=== PATIENT | male | born 1945 | race Caucasian/White ===

== ENCOUNTER 2024-10-08 15:28 | Emergency (ER) | payer MEDICARE, OTHER ==
[~2024-10-08] VITALS: Ht 172.7 cm; Wt 113.4 kg
[2024-10-08] MEDS ORDERED: PANT40TA2 PO (15:38)
[2024-10-08] MEDS ORDERED: ISOS30TA9 PO (15:38)
[2024-10-08] MEDS ORDERED: ATOR20TA PO (15:38)
[2024-10-08] MEDS ORDERED: QUET50TA PO (15:38)
[2024-10-08] MEDS ORDERED: LISI40TA13 PO (15:38)
[2024-10-08] MEDS ORDERED: LORA-259 PO (15:38)
[2024-10-08] MEDS ORDERED: CARV12.5 PO (15:38)
[2024-10-08] MEDS ORDERED: CLOP75TA15 PO (15:38)
[2024-10-08] MEDS ORDERED: TAMS-3 PO (15:38)
[2024-10-08] MEDS ORDERED: AMLO5TAB4 PO (15:38)
[2024-10-08] MEDS ORDERED: DOXA2TAB PO (15:38)
[2024-10-08] MEDS ORDERED: TIZA2CAP PO (15:38)
[2024-10-08] MEDS ORDERED: ONDANSETRON 4 MG/2 ML VIAL ONE (16:13)
[2024-10-08] MEDS ORDERED: HYDROMORPHONE 1 MG/1 ML DISP.SYRIN ONE (16:13)
[2024-10-08 16:17] LABS: BASOPHILS % (AUTO) 0.9 % (0.0-2.0); DIFFERENTIAL COMMENT 0; EOSINOPHILS # (AUTO) 0.1 K/uL (0.0-0.7); EOSINOPHILS % (AUTO) 2.1 % (0.0-7.0); HEMATOCRIT 35.6 % (36.7-47.1); HEMOGLOBIN 12.1 g/dL (12.5-16.3); LYMPHOCYTES # (AUTO) 0.8 K/uL (0.8-4.8); LYMPHOCYTES % (AUTO) 14.3 % (20.5-51.5); MEAN CORPUSCULAR HEMOGLOBIN 29.1 uug (23.8-33.4); MEAN CORPUSCULAR HGB CONC 34 g/dL (32.5-36.3); MEAN CORPUSCULAR VOLUME 85.8 fL (73.0-96.2); MONOCYTES # (AUTO) 0.5 K/uL (0.1-1.30); MONOCYTES % (AUTO) 8.9 % (0.0-11.0); NEUTROPHILS # (AUTO) 4.1 K/uL (1.8-8.9); NEUTROPHILS % (AUTO) 73.8 % (38.5-71.5); PLATELET COUNT (AUTO) 203 K/uL (152-348); RED BLOOD CELL COUNT(AUTO) 4.15 MIL/uL (4.06-5.63); RED CELL DISTRIBUTION WIDTH 16.3 % (12.1-16.2); WHITE BLOOD COUNT (AUTO) 5.6 K/uL (3.6-10.2)
[2024-10-08] MEDS: ONDANSETRON 4 MG/2 ML VIAL IV ONE (16:18)
[2024-10-08] MEDS: HYDROMORPHONE 1 MG/1 ML DISP.SYRIN IV ONE (16:18)
[2024-10-08 16:35] LABS: CALCIUM 8.6 mg/dL (8.5-10.1); CARBON DIOXIDE 24 mmol/L (21-32); CHLORIDE 107 mmol/L (98-107); CREATINE KINASE, TOTAL 86 U/L (39-308); CREATININE 1.2 mg/dL (0.6-1.3); GLUCOSE 136 mg/dL (74-106); MAGNESIUM 1.6 mg/dL (1.8-2.4); POTASSIUM 3.5 mmol/L (3.5-5.1); SODIUM SERUM 142 mmol/L (136-145); UREA NITROGEN, BLOOD 15 mg/dL (7-18)
[2024-10-08] MEDS ORDERED: MAGNESIUM SULFATE/D5W 200 ML ONE (17:29)
[2024-10-08] MEDS: MAGNESIUM SULFATE/D5W 100 ML IV SCH (17:36)
[2024-10-08] MEDS ORDERED: HYDR-3980 PO (18:43)
[2024-10-08] MEDS ORDERED: TDAP DIPH,PERTUSS,TET VAC/PF 0.5 ML DISP.SYRIN IM ONE ×2 (18:49→18:56)
[2024-10-08] MEDS: TDAP DIPH,PERTUSS,TET VAC/PF 0.5 ML DISP.SYRIN IM ONE (19:00)
[2024-10-08 21:25] VITALS: BP 137/80; TEMP 98; O2SAT 98
== END 2024-10-08 21:26 | disposition home or self-care (01) ==
LOC: ER 15:28
DX: S80.12XA Contusion of left lower leg, initial encounter (principal); R51.9 Headache, unspecified; R60.0 Localized edema; E11.9 Type 2 diabetes mellitus without complications; E83.42 Hypomagnesemia; I69.354 Hemiplegia and hemiparesis following cerebral infarction affecting left non-dominant side; K21.9 Gastro-esophageal reflux disease without esophagitis; Z79.02 Long term (current) use of antithrombotics/antiplatelets; Z79.899 Other long term (current) drug therapy; Z88.0 Allergy status to penicillin; Z88.1 Allergy status to other antibiotic agents; Z88.5 Allergy status to narcotic agent; Z88.8 Allergy status to other drugs, medicaments and biological substances; Z95.0 Presence of cardiac pacemaker; W18.39XA Other fall on same level, initial encounter; Y93.89 Activity, other specified; Y92.89 Other specified places as the place of occurrence of the external cause; Y99.8 Other external cause status
CPT/HCPCS: 99284; 96365; 96375; 80048; 82550; 83735; 85025; 36415; 73590; 73620; 90715; 90471; J3475; J2405; J1171; A4606; A4663

== ENCOUNTER 2024-12-03 19:19 | Inpatient (IN) | payer MEDICARE, OTHER ==
[~2024-12-03] VITALS: Ht 170.2 cm; Wt 68.0 kg
[~2024-12-03 19:19] MED LIST: AMLO5TAB4 PO; ATOR20TA PO; CARV12.5 PO; CLOP75TA15 PO; DOXA2TAB PO; HYDR-3980 PO; ISOS30TA9 PO; LISI40TA13 PO; LORA-259 PO; PANT40TA2 PO; QUET50TA PO; TAMS-3 PO; TIZA2CAP PO
[2024-12-03 19:59] LABS: BASOPHILS # (AUTO) 0.1 K/UL (0.0-0.2); BASOPHILS % (AUTO) 1.2 % (0.0-2.0); EOSINOPHILS # (AUTO) 0.1 K/uL (0.0-0.7); EOSINOPHILS % (AUTO) 1.2 % (0.0-7.0); HEMATOCRIT 41.1 % (36.7-47.1); HEMOGLOBIN 13.7 g/dL (12.5-16.3); LYMPHOCYTES # (AUTO) 0.8 K/uL (0.8-4.8); LYMPHOCYTES % (AUTO) 12.9 % (20.5-51.5); MEAN CORPUSCULAR HEMOGLOBIN 29.6 uug (23.8-33.4); MEAN CORPUSCULAR HGB CONC 33 g/dL (32.5-36.3); MEAN CORPUSCULAR VOLUME 88.9 fL (73.0-96.2); MONOCYTES # (AUTO) 0.5 K/uL (0.1-1.30); MONOCYTES % (AUTO) 8.9 % (0.0-11.0); NEUTROPHILS # (AUTO) 4.5 K/uL (1.8-8.9); NEUTROPHILS % (AUTO) 75.8 % (38.5-71.5); PLATELET COUNT (AUTO) 190 K/uL (152-348); RED BLOOD CELL COUNT(AUTO) 4.62 MIL/uL (4.06-5.63); RED CELL DISTRIBUTION WIDTH 16.1 % (12.1-16.2)
[2024-12-03 20:02] LABS: DIFFERENTIAL COMMENT 1
[2024-12-03 20:07] LABS: CARBON DIOXIDE 25 mmol/L (21-32); CHLORIDE 107 mmol/L (98-107); CREATININE 1.2 mg/dL (0.6-1.3); GLUCOSE 114 mg/dL (74-106); POTASSIUM 4.5 mmol/L (3.5-5.1); SODIUM SERUM 143 mmol/L (136-145); UREA NITROGEN, BLOOD 17 mg/dL (7-18)
[2024-12-03 20:12] LABS: ETHANOL < 3 MG/DL (0-10)
[2024-12-03 20:13] LABS: ALANINE AMINOTRANSFERASE 25 U/L (16-63); ALBUMIN 3.1 g/dL (3.4-5.0); ALKALINE PHOSPHATASE 85 U/L (50-136); ASPARTATE AMINOTRANSFERASE 19 U/L (15-37); BILIRUBIN,DIRECT 0.4 mg/dL (0.0-0.2); BILIRUBIN,TOTAL 1.3 mg/dL (0.2-1.0); TOTAL PROTEIN, SERUM 6.8 g/dL (6.4-8.2)
[2024-12-03] MEDS ORDERED: NA P133E RC (20:18)
[2024-12-03] MEDS ORDERED: BRIN10DR EACHEYE (20:18)
[2024-12-03] MEDS ORDERED: LATA7.5D EACHEYE (20:18)
[2024-12-03] MEDS ORDERED: MAGN400O6 PO (20:18)
[2024-12-03] MEDS ORDERED: ACET-73 PO (20:18)
[2024-12-03] MEDS ORDERED: TIMO5DRO35 EACHEYE (20:18)
[2024-12-03] MEDS ORDERED: IPRA3AMP22 IH (20:18)
[2024-12-03] MEDS ORDERED: MAG355OR18 PO (20:18)
[2024-12-03] MEDS ORDERED: BACL10TA PO (20:18)
[2024-12-03] MEDS ORDERED: PRED5DRO16 LEFTEYE (20:18)
[2024-12-03] MEDS ORDERED: ACET325T53 PO (20:18)
[2024-12-03] MEDS ORDERED: POLY119P2 PO (20:18)
[2024-12-03] MEDS ORDERED: MULT-213 PO (20:18)
[2024-12-03] MEDS ORDERED: QUET25TA PO (20:18)
[2024-12-03] MEDS ORDERED: TAMS-3 PO (20:18)
[2024-12-03] MEDS ORDERED: TRAM50TA2 PO (20:18)
[2024-12-03] MEDS ORDERED: AMMO385C4 TP (20:18)
[2024-12-03] MEDS ORDERED: BISA10SU61 RC (20:18)
[2024-12-03] MEDS ORDERED: ISOS10TA8 PO (20:18)
[2024-12-03] MEDS ORDERED: HALOPERIDOL LACTATE 5 MG/1 ML VIAL ONE (22:34)
[2024-12-03] MEDS: HALOPERIDOL LACTATE 5 MG/1 ML VIAL IM ONE (22:37)
[2024-12-03] MEDS ORDERED: LORAZEPAM 2 MG/1 ML VIAL ONE (23:05)
[2024-12-03] MEDS: LORAZEPAM 2 MG/1 ML VIAL IM ONE (23:10)
[2024-12-03 23:41] LABS: *BILIRUBIN,URIN NEGATIVE (NEGATIVE); *CLARITY,URINE CLEAR (CLEAR); *COLOR,URINE YELLOW (YELLOW); *KETONES,URINE 1+ (NEGATIVE); *PROTEIN,URINE 1+ (NEGATIVE); LEUKOCYTE ESTERASE ,URINE TRACE (NEGATIVE); NITRITE, URINE NEGATIVE (NEGATIVE); UGLUCOSE NEGATIVE (NEGATIVE)
[2024-12-03 23:43] LABS: *BLOOD, URINE TRACE (NEGATIVE)
[2024-12-03 23:51] LABS: *AMPHETAMINE, URINE NEGATIVE (NEGATIVE); *BARBITURATE, URINE NEGATIVE (NEGATIVE); *BENZODIAZEPINE, URINE NEGATIVE (NEGATIVE); *CANNABINOID, URINE NEGATIVE (NEGATIVE); *COCCAINE, URINE NEGATIVE (NEGATIVE); *OPIATE, URINE NEGATIVE (NEGATIVE); *PHENCYCLIDINE SCREEN,URINE NEGATIVE (NEGATIVE); FENTANYL, URINE NEGATIVE (NEGATIVE)
[2024-12-03 23:56] LABS: BACTERIA,URINE NONE SEEN /HPF (NONE SEEN); MUCUS,URINE FEW /LPF (0-FEW); RBC,URINE 0-3 /HPF (0-3); SQUAMOUS EPITHELIAL CELL,UR NONE SEEN /HPF (NONE SEEN); WBC,URINE 0-3 /HPF (0-3)
[2024-12-04] MEDS ORDERED: MAGNESIUM HYDROXIDE 30 ML LIQUID UDC PO PRN ×2 (04:15→11:00)
[2024-12-04] MEDS ORDERED: MAG HYDROX/AL HYDROX/SIMETH 30 ML LIQUID UDC PO PRN ×2 (04:15→11:00)
[2024-12-04 04:50] VITALS: BP 115/56; TEMP 98; O2SAT 96
[2024-12-04] MEDS ORDERED: POVI37802 TP (06:05)
[2024-12-04] MEDS: LORAZEPAM 1 MG TABLET PO PRN ×2 (07:05→10:49)
[2024-12-04 08:10] VITALS: BP 131/69; TEMP 98.1; O2SAT 94
[2024-12-04] MEDS: DIVALPROEX 250 MG TABLET.DR PO SCH (10:05)
[2024-12-04] MEDS: OLANZAPINE 2.5 MG TABLET PO SCH (10:05)
[2024-12-04] MEDS ORDERED: BISACODYL 10 MG SUPP.RECT RC PRN (11:00)
[2024-12-04] MEDS ORDERED: ACETAMINOPHEN ES 500 MG TABLET- SA PATIENTS-PAIN ONLY PO PRN (11:00)
[2024-12-04] MEDS ORDERED: POLYETHYLENE GLYCOL 3350 238 GM POWDER PO PRN (11:00)
[2024-12-04] MEDS ORDERED: FLEET ENEMA 133 ML BOTTLE RC PRN (11:00)
[2024-12-04] MEDS: prednisoLONE ACET 1% OPHT DROP 5 ML BOTTLE LEFTEYE SCH (14:12)
[2024-12-04 16:12] VITALS: BP 133/71; TEMP 98.3; O2SAT 99
[2024-12-04] MEDS ORDERED: BRINZOLAMIDE 1% OPHT DROP 10 ML BOTTLE EACHEYE SCH (17:00)
[2024-12-04] MEDS ORDERED: ISOSORBIDE MONONITRATE 10 MG TABLET PO SCH (17:00)
[2024-12-04] MEDS: CARVEDILOL 12.5 MG TABLET PO SCH (17:38)
[2024-12-04] MEDS: ISOSORBIDE MONONITRATE 30 MG TAB.SR.24H PO SCH (17:39)
[2024-12-04] MEDS: DORZOLAMIDE 2% OPHT DROP 10 ML BOTTLE EACHEYE SCH (17:40)
[2024-12-04 20:00] VITALS: BP 134/65; TEMP 97.4; O2SAT 99
[2024-12-04] MEDS ORDERED: TIZANIDINE HCL 2 MG PO SCH (21:00)
[2024-12-04] MEDS: TIZANIDINE HCL 4 MG TABLET PO SCH (21:51)
[2024-12-04] MEDS: REMEDY ESSENTIAL ZINC PASTE 113 GM TOP SCH (21:51)
[2024-12-04] MEDS: ATORVASTATIN 20 MG TABLET PO SCH (21:52)
[2024-12-04] MEDS: AMLODIPINE 5 MG TABLET PO SCH (21:52)
[2024-12-04] MEDS: TAMSULOSIN HCL 0.4 MG CAP.SR.24H PO SCH (21:52)
[2024-12-05] MEDS: BACLOFEN 10 MG TABLET PO PRN (00:17)
[2024-12-05] MEDS: ZOLPIDEM 5 MG TABLET PO PRN (01:08)
[2024-12-05] MEDS: PANTOPRAZOLE SODIUM 40 MG TABLET.DR PO SCH (06:34)
[2024-12-05 08:25] VITALS: BP 93/53; TEMP 98.2; O2SAT 96
[2024-12-05] MEDS ORDERED: ACETAMINOPHEN 325 MG TABLET-SA PATIENTS-PAIN ONLY PO SCH (09:00)
[2024-12-05] MEDS ORDERED: Medication Not On Formulary EA (Lisinopril 40 MG) PO SCH (09:00)
[2024-12-05] MEDS ORDERED: Medication Not On Formulary EA (Multivitamins W-Minerals (Multivitamin With Minerals) 1 PO SCH (09:00)
[2024-12-05] MEDS: LISINOPRIL 20 MG TABLET PO SCH (09:00)
[2024-12-05] MEDS: CLOPIDOGREL 75 MG TABLET PO SCH (09:02)
[2024-12-05] MEDS: MULTIVIT, IRON, MIN NO. 8, FA TABLET PO SCH (09:02)
[2024-12-05] MEDS: AMMONIUM LACTATE 12% LOTION 225 GM BOTTLE TP SCH (16:57)
[2024-12-05] MEDS ORDERED: MIRALAX 17 GM POWD.PACK PO PRN (17:15)
[2024-12-05 20:40] VITALS: BP 150/67; TEMP 97.8; O2SAT 99
[2024-12-06] MEDS: ACETAMINOPHEN 325 MG TABLET PO PRN (05:26)
[2024-12-06 08:29] VITALS: BP 110/52; TEMP 97.8; O2SAT 98
[2024-12-06 15:42] VITALS: BP 128/62; TEMP 97.4; O2SAT 97
[2024-12-06 20:39] VITALS: BP 143/72; TEMP 97.3; O2SAT 98
[2024-12-07 08:24] VITALS: BP 138/100; TEMP 97.7; O2SAT 99
[2024-12-07 16:18] VITALS: BP 128/71; TEMP 98.4; O2SAT 100
[2024-12-07 20:00] VITALS: BP 156/80; TEMP 98; O2SAT 97
[2024-12-08 08:08] VITALS: BP 149/69; TEMP 98; O2SAT 98
[2024-12-08] MEDS: GLUCERNA SHAKE 237 ML CAN PO SCH (08:57)
[2024-12-08] MEDS: OLANZAPINE 2.5 MG TABLET PO SCH (12:58)
[2024-12-08 15:21] VITALS: BP 154/77; TEMP 98; O2SAT 96
[2024-12-08 20:00] VITALS: BP 120/51; TEMP 97.7; O2SAT 97
[2024-12-09 08:00] VITALS: BP 126/54; TEMP 97.6; O2SAT 96
[2024-12-09 12:00] VITALS: BP 139/67; TEMP 98.2; O2SAT 97
[2024-12-09 15:50] VITALS: BP 122/67; TEMP 98.2; O2SAT 98
[2024-12-09 19:40] VITALS: BP 150/68; TEMP 98.3; O2SAT 95
[2024-12-09] MEDS: GUAIFENESIN/DEXTROMETHORPHAN 5 ML UDC PO PRN (21:11)
[2024-12-10] MEDS: ACETAMINOPHEN 325 MG TABLET PO PRN (01:46)
[2024-12-10 08:00] VITALS: BP 120/54; TEMP 97.5; O2SAT 95
[2024-12-10] MEDS ORDERED: LORAZEPAM 1 MG TABLET PO PRN (08:15)
[2024-12-10] MEDS: OLANZAPINE 2.5 MG TABLET PO SCH (09:42)
[2024-12-10] MEDS: GUAIFENESIN/DEXTROMETHORPHAN 5 ML UDC PO PRN (09:59)
[2024-12-10 15:01] VITALS: BP 120/58; TEMP 98.4; O2SAT 93
[2024-12-10 20:00] VITALS: BP 120/63; TEMP 98.8; O2SAT 92
[2024-12-10] MEDS: TRAMADOL HCL 50 MG TABLET PO PRN (20:32)
[2024-12-10] MEDS: OLANZAPINE 5 MG TABLET PO SCH (21:42)
[2024-12-10] MEDS: AZITHROMYCIN 250 MG TABLET PO SCH (23:05)
[2024-12-11] VITALS (7 sets, daily range): BP systolic 96–115; BP diastolic 54–64; TEMP 97.6–100; O2SAT 94–96
[2024-12-11] MEDS ORDERED: FUROSEMIDE 20 MG/2 ML VIAL IV ONE (09:00)
[2024-12-11] MEDS: DOXYCYCLINE HYCLATE 100 MG TABLET PO SCH (10:17)
[2024-12-11] MEDS: FUROSEMIDE 40 MG TABLET PO ONE (10:51)
[2024-12-11] MEDS: ALBUTEROL SULFATE 1.25 MG/3 ML NEBU NEB PRN (21:47)
[2024-12-11] MEDS ORDERED: AZITHROMYCIN 250 MG TABLET PO SCH (23:00)
[2024-12-12 04:49] VITALS: BP 121/57; TEMP 99.4; O2SAT 96
[2024-12-12 07:54] LABS: BASOPHILS % (AUTO) 0.4 % (0.0-2.0); EOSINOPHILS % (AUTO) 0.3 % (0.0-7.0); HEMATOCRIT 36.2 % (36.7-47.1); HEMOGLOBIN 12.2 g/dL (12.5-16.3); LYMPHOCYTES # (AUTO) 0.8 K/uL (0.8-4.8); LYMPHOCYTES % (AUTO) 12.4 % (20.5-51.5); MEAN CORPUSCULAR HEMOGLOBIN 29.7 uug (23.8-33.4); MEAN CORPUSCULAR HGB CONC 34 g/dL (32.5-36.3); MONOCYTES % (AUTO) 15.3 % (0.0-11.0); NEUTROPHILS # (AUTO) 4.8 K/uL (1.8-8.9); NEUTROPHILS % (AUTO) 71.6 % (38.5-71.5); PLATELET COUNT (AUTO) 175 K/uL (152-348); RED BLOOD CELL COUNT(AUTO) 4.12 MIL/uL (4.06-5.63); RED CELL DISTRIBUTION WIDTH 16.4 % (12.1-16.2); WHITE BLOOD COUNT (AUTO) 6.7 K/uL (3.6-10.2)
[2024-12-12 08:07] LABS: DIFFERENTIAL COMMENT 1
[2024-12-12 08:08] LABS: CALCIUM 8.5 mg/dL (8.5-10.1); CARBON DIOXIDE 26 mmol/L (21-32); CHLORIDE 102 mmol/L (98-107); CREATININE 1.7 mg/dL (0.6-1.3); GLUCOSE 90 mg/dL (74-106); POTASSIUM 3.7 mmol/L (3.5-5.1); SODIUM SERUM 140 mmol/L (136-145); UREA NITROGEN, BLOOD 50 mg/dL (7-18)
[2024-12-12 08:35] VITALS: BP 118/76; TEMP 98.1; O2SAT 93
[2024-12-12 09:44] LABS: ANISOCYTOSIS 1+; EOSINOPHILS % (MANUAL) 1 % (0-8); LYMPHOCYTES % (MANUAL) 12 % (20-40); MONOCYTES % (MANUAL) 15 % (2-10); NEUTROPHILS % (MANUAL) 72 % (42-75); PLATELET ESTIMATE ADEQUATE
[2024-12-12] MEDS: LORAZEPAM 0.5 MG TABLET PO PRN (10:12)
[2024-12-12 11:18] VITALS: BP 114/69; TEMP 98.4; O2SAT 96
[2024-12-12 18:13] VITALS: BP 107/53; TEMP 98.9; O2SAT 94
[2024-12-12 20:30] VITALS: BP 102/57; TEMP 98.5; O2SAT 95
[2024-12-13 06:00] VITALS: BP 114/58; TEMP 98.5; O2SAT 95
[2024-12-13 09:16] VITALS: BP 138/54; TEMP 99; O2SAT 96
[2024-12-13] MEDS: IV NS 1000 ML 1,000 ML IV SCH (11:18)
[2024-12-13 18:02] VITALS: BP 114/41; TEMP 98.6; O2SAT 92
[2024-12-13 19:05] VITALS: BP 117/53; TEMP 99.8; O2SAT 94
[2024-12-13 20:01] VITALS: O2SAT 94
[2024-12-13 20:11] VITALS: O2SAT 96
[2024-12-14 04:28] VITALS: BP 100/55; TEMP 98.6; O2SAT 96
[2024-12-14 06:46] LABS: BASOPHILS % (AUTO) 0.7 % (0.0-2.0); EOSINOPHILS % (AUTO) 0.6 % (0.0-7.0); HEMATOCRIT 31.2 % (36.7-47.1); HEMOGLOBIN 10.4 g/dL (12.5-16.3); LYMPHOCYTES # (AUTO) 0.9 K/uL (0.8-4.8); LYMPHOCYTES % (AUTO) 13.3 % (20.5-51.5); MEAN CORPUSCULAR HEMOGLOBIN 30.3 uug (23.8-33.4); MEAN CORPUSCULAR HGB CONC 33 g/dL (32.5-36.3); MEAN CORPUSCULAR VOLUME 90.8 fL (73.0-96.2); MONOCYTES # (AUTO) 0.9 K/uL (0.1-1.30); MONOCYTES % (AUTO) 14.3 % (0.0-11.0); NEUTROPHILS # (AUTO) 4.7 K/uL (1.8-8.9); NEUTROPHILS % (AUTO) 71.1 % (38.5-71.5); PLATELET COUNT (AUTO) 169 K/uL (152-348); RED BLOOD CELL COUNT(AUTO) 3.44 MIL/uL (4.06-5.63); RED CELL DISTRIBUTION WIDTH 16.3 % (12.1-16.2); WHITE BLOOD COUNT (AUTO) 6.6 K/uL (3.6-10.2)
[2024-12-14 06:54] LABS: DIFFERENTIAL COMMENT 1
[2024-12-14 06:58] LABS: CALCIUM 8.3 mg/dL (8.5-10.1); CARBON DIOXIDE 26 mmol/L (21-32); CHLORIDE 103 mmol/L (98-107); CREATININE 1.4 mg/dL (0.6-1.3); GLUCOSE 100 mg/dL (74-106); POTASSIUM 3.8 mmol/L (3.5-5.1); SODIUM SERUM 137 mmol/L (136-145); UREA NITROGEN, BLOOD 32 mg/dL (7-18)
[2024-12-14 07:50] VITALS: BP 127/54; TEMP 98.2; O2SAT 95
[2024-12-14] MEDS ORDERED: OLAN2.5T27 PO (13:02)
[2024-12-14] MEDS ORDERED: OLAN5TAB70 PO (13:02)
[2024-12-14] MEDS ORDERED: DIVA250T4 PO (13:02)
[2024-12-14] MEDS ORDERED: DOXY100T2 PO (13:02)
[2024-12-14 13:56] VITALS: BP 122/57; TEMP 99.1; O2SAT 95
[2024-12-14 15:54] VITALS: BP 120/61; TEMP 98.6; O2SAT 96
== END 2024-12-14 16:35 | DRG 885 ==
LOC: ER 19:19 → GPS 23:59 → GPSOV3 12-08 21:59
PROVIDERS: ADMIT Psychiatry & Neurology Psychiatry; ATTEND Nurse Practitioner Acute Care
DX: F29 Unspecified psychosis not due to a substance or known physiological condition (principal); F03.93 Unspecified dementia, unspecified severity, with mood disturbance; I69.354 Hemiplegia and hemiparesis following cerebral infarction affecting left non-dominant side; N40.0 Benign prostatic hyperplasia without lower urinary tract symptoms; H40.9 Unspecified glaucoma; L85.3 Xerosis cutis; E11.42 Type 2 diabetes mellitus with diabetic polyneuropathy; I89.0 Lymphedema, not elsewhere classified; S90.121A Contusion of right lesser toe(s) without damage to nail, initial encounter; X58.XXXA Exposure to other specified factors, initial encounter; Y92.129 Unspecified place in nursing home as the place of occurrence of the external cause; Z86.31 Personal history of diabetic foot ulcer; E78.5 Hyperlipidemia, unspecified; Z88.5 Allergy status to narcotic agent; Z88.0 Allergy status to penicillin; Z88.8 Allergy status to other drugs, medicaments and biological substances; Z95.0 Presence of cardiac pacemaker; Z79.82 Long term (current) use of aspirin; J40 Bronchitis, not specified as acute or chronic; L90.5 Scar conditions and fibrosis of skin; I35.9 Nonrheumatic aortic valve disorder, unspecified; I11.9 Hypertensive heart disease without heart failure
CPT/HCPCS: 36415; 71045; 80164; 85025; 94640; A4606; A4663; A6209; A6213; C1758; G0480; J1630; J1940; J2060; J2650; J3490; J7040; Q0144

== ENCOUNTER 2024-12-16 22:10 | Inpatient (IN) | payer MEDICARE, OTHER ==
[~2024-12-16] VITALS: Ht 170.2 cm; Wt 75.7 kg
[~2024-12-16 22:10] MED LIST changes: +ACET-73 PO; +ACET325T53 PO; +AMMO385C4 TP; +BACL10TA PO; +BISA10SU61 RC; +BRIN10DR EACHEYE; +DIVA250T4 PO; -DOXA2TAB PO; +DOXY100T2 PO; -HYDR-3980 PO; +IPRA3AMP22 IH; +ISOS10TA8 PO; -ISOS30TA9 PO; +LATA7.5D EACHEYE; -LORA-259 PO; +MAG355OR18 PO; +MAGN400O6 PO; +MULT-213 PO; +NA P133E RC; +OLAN2.5T27 PO; +OLAN5TAB70 PO; +POLY119P2 PO; +POVI37802 TP; +PRED5DRO16 LEFTEYE; -QUET50TA PO; +TIMO5DRO35 EACHEYE; +TRAM50TA2 PO
[2024-12-16] MEDS ORDERED: MAGN400O6 PO (22:34)
[2024-12-16] MEDS ORDERED: LATA7.5D EACHEYE (22:34)
[2024-12-16] MEDS ORDERED: CLOP75TA33 PO (22:34)
[2024-12-16] MEDS ORDERED: NA P133E RC (22:34)
[2024-12-16] MEDS ORDERED: MAG355OR18 PO (22:34)
[2024-12-16] MEDS ORDERED: ISOS60TA72 PO (22:34)
[2024-12-16] MEDS ORDERED: PRED5DRO24 LEFTEYE (22:34)
[2024-12-16] MEDS ORDERED: OLAN5TAB70 PO (22:34)
[2024-12-16] MEDS ORDERED: DORZ10DR19 EACHEYE (22:34)
[2024-12-16] MEDS ORDERED: DIVA250T4 PO (22:34)
[2024-12-16] MEDS ORDERED: DOXY100T2 PO (22:34)
[2024-12-16] MEDS ORDERED: ALBU0.63 NEB (22:34)
[2024-12-16] MEDS ORDERED: CARV12.52 PO (22:34)
[2024-12-16] MEDS ORDERED: POVI37802 TP (22:34)
[2024-12-16] MEDS ORDERED: MAG-55 PO (22:34)
[2024-12-16] MEDS ORDERED: AMMO385C4 TP (22:34)
[2024-12-16] MEDS ORDERED: TAMS-3 PO (22:34)
[2024-12-16] MEDS ORDERED: TRAM50TA2 PO (22:34)
[2024-12-16] MEDS ORDERED: BACL10TA PO (22:34)
[2024-12-16] MEDS ORDERED: TIZA-180 PO (22:34)
[2024-12-16] MEDS ORDERED: PANT40TA49 PO (22:34)
[2024-12-16] MEDS ORDERED: BISA10SU95 RC (22:34)
[2024-12-16] MEDS ORDERED: AZITHROMYCIN IV 500 MG in IV DEXTROSE 5% 250 ML IV ONE (22:45)
[2024-12-16] MEDS ORDERED: CEFTRIAXONE /D5W 50ML IVPB **ER PYXIS IV ONE (23:13)
[2024-12-16 23:20] LABS: BASOPHILS % (AUTO) 0.6 % (0.0-2.0); EOSINOPHILS # (AUTO) 0.1 K/uL (0.0-0.7); HEMOGLOBIN 12.2 g/dL (12.5-16.3); LYMPHOCYTES # (AUTO) 0.6 K/uL (0.8-4.8); LYMPHOCYTES % (AUTO) 9.1 % (20.5-51.5); MEAN CORPUSCULAR HEMOGLOBIN 29.3 uug (23.8-33.4); MEAN CORPUSCULAR HGB CONC 33 g/dL (32.5-36.3); MEAN CORPUSCULAR VOLUME 89.1 fL (73.0-96.2); MONOCYTES # (AUTO) 0.9 K/uL (0.1-1.30); MONOCYTES % (AUTO) 14.3 % (0.0-11.0); NEUTROPHILS # (AUTO) 4.6 K/uL (1.8-8.9); PLATELET COUNT (AUTO) 266 K/uL (152-348); RED BLOOD CELL COUNT(AUTO) 4.15 MIL/uL (4.06-5.63); RED CELL DISTRIBUTION WIDTH 16.5 % (12.1-16.2); WHITE BLOOD COUNT (AUTO) 6.2 K/uL (3.6-10.2)
[2024-12-16 23:21] LABS: DIFFERENTIAL COMMENT 1
[2024-12-16] MEDS: CEFTRIAXONE 1 G in IV DEXTROSE 5% 50 ML IV ONE (23:28)
[2024-12-16] MEDS: IV NORMAL SALINE 1000 ML BAG IV ONE (23:28)
[2024-12-16] MEDS ORDERED: AZITHROMYCIN 250 MG TABLET ONE (23:29)
[2024-12-16 23:30] LABS: CARBON DIOXIDE 27 mmol/L (21-32); CHLORIDE 106 mmol/L (98-107); CREATININE 1.2 mg/dL (0.6-1.3); GLUCOSE 132 mg/dL (74-106); POTASSIUM 3.8 mmol/L (3.5-5.1); SODIUM SERUM 142 mmol/L (136-145); UREA NITROGEN, BLOOD 21 mg/dL (7-18)
[2024-12-16] MEDS: AZITHROMYCIN 250 MG TABLET PO ONE (23:30)
[2024-12-16 23:33] LABS: ETHANOL < 3 MG/DL (0-10)
[2024-12-16 23:44] LABS: ALANINE AMINOTRANSFERASE 31 U/L (16-63); ALBUMIN 2.3 g/dL (3.4-5.0); ALKALINE PHOSPHATASE 63 U/L (50-136); ASPARTATE AMINOTRANSFERASE 30 U/L (15-37); BILIRUBIN,DIRECT 0.3 mg/dL (0.0-0.2); BILIRUBIN,TOTAL 0.7 mg/dL (0.2-1.0); NT-PRO BNP 11522 pg/mL (0-125); TOTAL PROTEIN, SERUM 6.7 g/dL (6.4-8.2)
[2024-12-16 23:58] LABS: ACETAMINOPHEN < 10.0 ug/mL (10-30)
[2024-12-17 00:28] LABS: *BILIRUBIN,URIN 1+ (NEGATIVE); *BLOOD, URINE NEGATIVE (NEGATIVE); *CLARITY,URINE CLEAR (CLEAR); *COLOR,URINE YELLOW (YELLOW); *KETONES,URINE TRACE (NEGATIVE); *PROTEIN,URINE 1+ (NEGATIVE); LEUKOCYTE ESTERASE ,URINE NEGATIVE (NEGATIVE); NITRITE, URINE NEGATIVE (NEGATIVE); UGLUCOSE NEGATIVE (NEGATIVE)
[2024-12-17 00:36] LABS: *AMPHETAMINE, URINE NEGATIVE (NEGATIVE); *BARBITURATE, URINE NEGATIVE (NEGATIVE); *BENZODIAZEPINE, URINE NEGATIVE (NEGATIVE); *CANNABINOID, URINE NEGATIVE (NEGATIVE); *COCCAINE, URINE NEGATIVE (NEGATIVE); *OPIATE, URINE NEGATIVE (NEGATIVE); *PHENCYCLIDINE SCREEN,URINE NEGATIVE (NEGATIVE); FENTANYL, URINE NEGATIVE (NEGATIVE)
[2024-12-17 00:58] LABS: BACTERIA,URINE FEW /HPF (NONE SEEN); MUCUS,URINE FEW /LPF (0-FEW); RBC,URINE NONE SEEN /HPF (0-3); SQUAMOUS EPITHELIAL CELL,UR NONE SEEN /HPF (NONE SEEN); WBC,URINE NONE SEEN /HPF (0-3)
[2024-12-17] MEDS ORDERED: ONDANSETRON 4 MG/2 ML VIAL IV PRN (01:00)
[2024-12-17] MEDS ORDERED: REMEDY ESSENTIAL ZINC PASTE 113 GM TP PRN (01:00)
[2024-12-17] MEDS ORDERED: MAGNESIUM HYDROXIDE 30 ML LIQUID UDC PO PRN (01:00)
[2024-12-17] MEDS ORDERED: ALBUTEROL SULFATE 2.5 MG/3 ML NEBU ONE (02:35)
[2024-12-17] MEDS ORDERED: ACETAMINOPHEN 325 MG TABLET ONE (02:55)
[2024-12-17] MEDS: ACETAMINOPHEN 325 MG TABLET PO PRN (03:00)
[2024-12-17] MEDS: ALBUTEROL SULFATE 2.5 MG/3 ML NEBU NEB PRN (03:21)
[2024-12-17 04:40] VITALS: BP 130/58; TEMP 97.8; O2SAT 96
[2024-12-17 07:21] LABS: BASOPHILS % (AUTO) 0.7 % (0.0-2.0); EOSINOPHILS # (AUTO) 0.1 K/uL (0.0-0.7); EOSINOPHILS % (AUTO) 0.8 % (0.0-7.0); HEMATOCRIT 40.5 % (36.7-47.1); HEMOGLOBIN 13.2 g/dL (12.5-16.3); LYMPHOCYTES # (AUTO) 0.8 K/uL (0.8-4.8); LYMPHOCYTES % (AUTO) 12.1 % (20.5-51.5); MEAN CORPUSCULAR HEMOGLOBIN 29.4 uug (23.8-33.4); MEAN CORPUSCULAR HGB CONC 33 g/dL (32.5-36.3); MEAN CORPUSCULAR VOLUME 90.4 fL (73.0-96.2); MONOCYTES % (AUTO) 14.9 % (0.0-11.0); NEUTROPHILS # (AUTO) 4.7 K/uL (1.8-8.9); NEUTROPHILS % (AUTO) 71.5 % (38.5-71.5); PLATELET COUNT (AUTO) 297 K/uL (152-348); RED BLOOD CELL COUNT(AUTO) 4.48 MIL/uL (4.06-5.63); RED CELL DISTRIBUTION WIDTH 16.6 % (12.1-16.2); WHITE BLOOD COUNT (AUTO) 6.6 K/uL (3.6-10.2)
[2024-12-17 07:32] LABS: DIFFERENTIAL COMMENT 1
[2024-12-17 07:40] VITALS: BP 135/43; TEMP 98.3; O2SAT 99
[2024-12-17] MEDS ORDERED: PANTOPRAZOLE SODIUM 40 MG TABLET.DR PO ONE (07:45)
[2024-12-17] MEDS: PANTOPRAZOLE SODIUM 40 MG TABLET.DR PO SCH (07:46)
[2024-12-17 08:05] LABS: CALCIUM 8.9 mg/dL (8.5-10.1); CARBON DIOXIDE 24 mmol/L (21-32); CHLORIDE 107 mmol/L (98-107); GLUCOSE 101 mg/dL (74-106); MAGNESIUM 2.1 mg/dL (1.8-2.4); NT-PRO BNP 14535 pg/mL (0-125); PHOSPHOROUS 3.1 mg/dL (2.5-4.9); POTASSIUM 3.7 mmol/L (3.5-5.1); SODIUM SERUM 143 mmol/L (136-145); UREA NITROGEN, BLOOD 21 mg/dL (7-18)
[2024-12-17 08:58] VITALS: BP 154/76; TEMP 98.8; O2SAT 98
[2024-12-17 12:24] LABS: THYROID STIMULATING HORMONE 3.328 mIU/mL (0.358-3.740)
[2024-12-17] MEDS ORDERED: ACET325T53 PO (13:10)
[2024-12-17 15:12] VITALS: BP 141/65; TEMP 97.8; O2SAT 96
[2024-12-17 16:15] VITALS: O2SAT 97
[2024-12-17] MEDS ORDERED: BISACODYL 10 MG SUPP.RECT RC PRN (20:00)
[2024-12-17] MEDS ORDERED: ACETAMINOPHEN 325 MG TABLET-SA PATIENTS-PAIN ONLY PO PRN (20:00)
[2024-12-17] MEDS ORDERED: POLYETHYLENE GLYCOL 3350 238 GM POWDER PO PRN (20:00)
[2024-12-17] MEDS ORDERED: BACLOFEN 10 MG TABLET PO PRN (20:00)
[2024-12-17] MEDS ORDERED: FLEET ENEMA 133 ML BOTTLE RC PRN (20:00)
[2024-12-17] MEDS: prednisoLONE ACET 1% OPHT DROP 5 ML BOTTLE LEFTEYE SCH (21:00)
[2024-12-17] MEDS: CEFTRIAXONE 1 G in IV DEXTROSE 5% 50 ML IV SCH (21:08)
[2024-12-17] MEDS: DOXYCYCLINE HYCLATE 100 MG TABLET PO SCH (21:09)
[2024-12-17] MEDS: CARVEDILOL 12.5 MG TABLET PO SCH (21:10)
[2024-12-17] MEDS: TAMSULOSIN HCL 0.4 MG CAP.SR.24H PO SCH (21:10)
[2024-12-17] MEDS: DIVALPROEX 250 MG TABLET.DR PO SCH (21:10)
[2024-12-17] MEDS: OLANZAPINE 5 MG TABLET PO SCH (21:11)
[2024-12-17] MEDS: TIZANIDINE HCL 4 MG TABLET PO SCH (21:24)
[2024-12-17] MEDS ORDERED: AZITHROMYCIN IV 500 MG in IV DEXTROSE 5% 250 ML IV SCH (22:00)
[2024-12-17 23:42] VITALS: BP 101/48; TEMP 97.6; O2SAT 95
[2024-12-18] VITALS (8 sets, daily range): BP systolic 101–169; BP diastolic 48–69; TEMP 97.5–98.3; O2SAT 95–97
[2024-12-18 06:19] LABS: ABG PCO2 31.4 mmHg (35.0-48.0); ABG PH 7.463 (7.350-7.450); ABG PO2 69.5 mmHg (83.0-108.0); ABG SITE RIGHT RADIAL; ABG TOTAL HEMOGLOBIN 12.4 G/dL (13.5-17.5); COHb 0.3 % (0.5-1.5); MetHb 0.3 % (0.0-1.5); O2Hb 93.6 % (94.0-98.0)
[2024-12-18] MEDS ORDERED: PANTOPRAZOLE SODIUM 40 MG TABLET.DR PO SCH (07:00)
[2024-12-18] MEDS ORDERED: ISOS30TA86 PO (08:48)
[2024-12-18] MEDS ORDERED: ISOSORBIDE MONONITRATE 10 MG TABLET PO SCH ×2 (09:00)
[2024-12-18] MEDS ORDERED: BRINZOLAMIDE 1% OPHT DROP 10 ML BOTTLE EACHEYE SCH (09:00)
[2024-12-18] MEDS: OLANZAPINE 2.5 MG TABLET PO SCH (09:16)
[2024-12-18] MEDS: MULTIVIT, IRON, MIN NO. 8, FA TABLET PO SCH (09:17)
[2024-12-18] MEDS: FUROSEMIDE 20 MG/2 ML VIAL IV SCH (09:17)
[2024-12-18] MEDS: CLOPIDOGREL 75 MG TABLET PO SCH (09:17)
[2024-12-18] MEDS: GUAIFENESIN/DEXTROMETHORPHAN 5 ML UDC PO PRN (09:17)
[2024-12-18] MEDS: prednisoLONE ACET 1% OPHT DROP 5 ML BOTTLE LEFTEYE SCH (09:18)
[2024-12-18] MEDS: DORZOLAMIDE 2% OPHT DROP 10 ML BOTTLE EACHEYE SCH (09:18)
[2024-12-18] MEDS: ISOSORBIDE MONONITRATE 30 MG TAB.SR.24H PO SCH (10:33)
[2024-12-18] MEDS ORDERED: PIPERACILLIN SODIUM/TAZOBACTAM 3.375 G in IV DEXTROSE 5% 50 ML IV SCH (12:00)
[2024-12-18] MEDS: PIPERACILLIN SODIUM/TAZOBACTAM 3.375 G in IV DEXTROSE 5% 100 ML IV SCH (14:02)
[2024-12-18] MEDS: TIMOLOL MALEATE 0.5% OPHT DROP 5 ML BOTTLE EACHEYE SCH (21:10)
[2024-12-19 05:11] VITALS: BP 101/51; TEMP 98.2; O2SAT 95
[2024-12-19] MEDS: CLOTRIMAZOLE 1% CREAM 30 GM TUBE TOP SCH (09:08)
[2024-12-19 09:33] VITALS: O2SAT 98
[2024-12-19 11:19] VITALS: BP 96/52; TEMP 97.9; O2SAT 98
[2024-12-19 16:21] VITALS: BP 109/55; TEMP 97.7; O2SAT 95
[2024-12-19 19:20] VITALS: BP 104/53; TEMP 98.4; O2SAT 98
[2024-12-19 20:19] VITALS: O2SAT 97
[2024-12-20] MEDS: TRAMADOL HCL 50 MG TABLET PO PRN (03:37)
[2024-12-20 05:54] VITALS: BP 117/63; TEMP 99.3; O2SAT 97
[2024-12-20 11:15] VITALS: O2SAT 98
[2024-12-20 11:34] VITALS: BP 123/63; TEMP 97.7; O2SAT 98
[2024-12-20 16:00] VITALS: BP 121/77; TEMP 98.8; O2SAT 97
[2024-12-20 19:53] VITALS: BP 121/78; TEMP 98.2; O2SAT 97
[2024-12-21 01:26] VITALS: O2SAT 97
[2024-12-21 04:23] VITALS: BP 121/63; TEMP 98.4; O2SAT 100
[2024-12-21 11:09] VITALS: BP 129/58; TEMP 98.6; O2SAT 100
[2024-12-21 14:25] VITALS: O2SAT 98
[2024-12-21 15:25] VITALS: BP 118/55; TEMP 98.4; O2SAT 97
[2024-12-21] MEDS ORDERED: LISI10TA29 PO (16:17)
[2024-12-21] MEDS ORDERED: GUAI5SYR PO (16:17)
[2024-12-21] MEDS ORDERED: DOXY100T2 PO (16:17)
[2024-12-21] MEDS ORDERED: ACID1TAB4 PO (16:17)
[2024-12-21] MEDS ORDERED: FURO20TA4 PO (16:25)
[2024-12-21 17:02] VITALS: BP 156/103
== END 2024-12-21 19:00 | DRG 177 ==
LOC: ER 22:24 → TELE3 12-17 00:45 → MEDSURG3 12-18 11:00
PROVIDERS: ADMIT Nurse Practitioner Family; ATTEND Internal Medicine
PROC: 05H933Z Insertion of Infusion Device into Right Brachial Vein, Percutaneous Approach (ICD-10-PCS; principal; 2024-12-18)
DX: J69.0 Pneumonitis due to inhalation of food and vomit (principal); I50.31 Acute diastolic (congestive) heart failure; J96.21 Acute and chronic respiratory failure with hypoxia; I69.354 Hemiplegia and hemiparesis following cerebral infarction affecting left non-dominant side; D68.59 Other primary thrombophilia; E44.0 Moderate protein-calorie malnutrition; F03.94 Unspecified dementia, unspecified severity, with anxiety; F03.93 Unspecified dementia, unspecified severity, with mood disturbance; Z87.891 Personal history of nicotine dependence; E66.9 Obesity, unspecified; Z68.26 Body mass index [BMI] 26.0-26.9, adult; Z74.09 Other reduced mobility; I11.0 Hypertensive heart disease with heart failure; J84.9 Interstitial pulmonary disease, unspecified; E11.42 Type 2 diabetes mellitus with diabetic polyneuropathy; H54.61 Unqualified visual loss, right eye, normal vision left eye; H40.9 Unspecified glaucoma; E78.5 Hyperlipidemia, unspecified; Z95.0 Presence of cardiac pacemaker; J20.9 Acute bronchitis, unspecified; J45.909 Unspecified asthma, uncomplicated; I25.10 Atherosclerotic heart disease of native coronary artery without angina pectoris; L30.9 Dermatitis, unspecified; R79.89 Other specified abnormal findings of blood chemistry; E11.51 Type 2 diabetes mellitus with diabetic peripheral angiopathy without gangrene; N40.0 Benign prostatic hyperplasia without lower urinary tract symptoms; I35.9 Nonrheumatic aortic valve disorder, unspecified; Z79.02 Long term (current) use of antithrombotics/antiplatelets; S90.32XA Contusion of left foot, initial encounter; S90.31XA Contusion of right foot, initial encounter; X58.XXXA Exposure to other specified factors, initial encounter; Y92.129 Unspecified place in nursing home as the place of occurrence of the external cause; Z88.5 Allergy status to narcotic agent; Z88.1 Allergy status to other antibiotic agents; Z88.0 Allergy status to penicillin; Z79.899 Other long term (current) drug therapy; K21.9 Gastro-esophageal reflux disease without esophagitis; I49.9 Cardiac arrhythmia, unspecified; Z87.448 Personal history of other diseases of urinary system
CPT/HCPCS: 36415; 36600; 71045; 82803; 83605; 83735; 84100; 84443; 84484; 85025; 85730; 86140; 87040; 93005; 94760; A4663; A6209; A6213; G0378; G0480; J0696; J1940; J2543; J2650; J3490; J7040; Q0144